=== PATIENT | female | born 1960 | race Caucasian/White ===

== ENCOUNTER 2021-10-23 08:02 | Outpatient (CLI) | payer BC ==
[2021-10-23 20:00] LABS: SARS-CoV-2 PCR by NAA Not Detected (NotDetected)
== END 2021-10-23 08:03 | disposition home or self-care (01) ==
LOC: CSHLAB 08:02
PROVIDERS: ATTEND Surgery
DX: Z01.818 Encounter for other preprocedural examination (principal); Z20.822 Contact with and (suspected) exposure to COVID-19; K42.9 Umbilical hernia without obstruction or gangrene
CPT/HCPCS: 93005; 93010; U0003; U0005

== ENCOUNTER 2021-10-26 07:25 | Day surgery (SDC) | payer BC ==
[2021-10-24 14:10] VITALS: BMI 36.5
[2021-10-26] MEDS ORDERED: Bupivacaine PF 0.5% 30 ML VIAL ONE (08:21)
[2021-10-26] MEDS ORDERED: EPINEPHrine 1 MG/ML AMP ONE (08:21)
[2021-10-26] MEDS ORDERED: Lidocaine 1% MPF 2 ML VIAL ONE (08:21)
[2021-10-26] MEDS ORDERED: Midazolam HCl 2 mg/2 ml Vial ONE (08:36)
[2021-10-26] MEDS ORDERED: PROPOFOL 20 ML ONE ×2 (08:44→09:27)
[2021-10-26] MEDS ORDERED: Lidocaine 1% PF 5 ML VIAL ONE (08:44)
[2021-10-26] MEDS ORDERED: Fentanyl 100 MCG/2 ML VIAL ONE ×2 (08:44→09:50)
[2021-10-26] MEDS ORDERED: Clindamycin/D5W 600 MG in Premix Bag 1 BAG IVPB SCH (08:45)
[2021-10-26] MEDS ORDERED: Glycopyrrolate 0.2 MG/ML 5 ML SYRINGE ONE (08:45)
[2021-10-26] MEDS ORDERED: Dexamethasone 4 mg/ml Vial ONE (08:45)
[2021-10-26] MEDS ORDERED: Rocuronium Bromide 10 MG/ML (10ML VIAL) ONE (08:45)
[2021-10-26] MEDS ORDERED: Ketorolac Tromethamine 30 MG/ML VIAL ONE (08:45)
[2021-10-26] MEDS ORDERED: Ondansetron PF 4 MG/2 ML Vial ONE (08:45)
[2021-10-26] MEDS ORDERED: Bacitracin 1 PK ONE (09:12)
[2021-10-26] MEDS ORDERED: Acetaminophen 325 MG TAB PO PRN (09:55)
[2021-10-26] MEDS ORDERED: HYDROcodone/Acetaminophen 5/325 mg Tablet PO PRN (09:55)
== END 2021-10-26 11:20 | disposition home or self-care (01) ==
LOC: CSHSDC 07:25
PROVIDERS: ATTEND Surgery
PROC: 0WQF0ZZ Repair Abdominal Wall, Open Approach (ICD-10-PCS; principal; 2021-10-26)
DX: K42.0 Umbilical hernia with obstruction, without gangrene (principal); I10 Essential (primary) hypertension; E03.9 Hypothyroidism, unspecified; Z79.899 Other long term (current) drug therapy; Z88.0 Allergy status to penicillin; Z88.2 Allergy status to sulfonamides
CPT/HCPCS: 88302; 88341; 88342; J0171; J1100; J1885; J2250; J2405; J2704; J3010; J3490; S0020